=== PATIENT | female | born 2000 | race African-American/Black ===

== ENCOUNTER 2020-06-25 23:50 | Emergency (ER) | payer MEDICAID, OTHER ==
[~2020-06-25] VITALS: Ht 162.6 cm; Wt 77.3 kg
[2020-06-25 23:53] VITALS: BP 114/63
[2020-06-26] MEDS ORDERED: penicillin V potassium 500mg tablet PO ONE (00:55)
[2020-06-26] MEDS ORDERED: PENI500T2 PO (00:56)
== END 2020-06-26 01:30 | disposition home or self-care (01) ==
LOC: ER 23:52
DX: J02.9 Acute pharyngitis, unspecified (principal); Z60.2 Problems related to living alone; Z79.2 Long term (current) use of antibiotics
CPT/HCPCS: 87081; 87880; 99283

== ENCOUNTER 2021-03-21 02:19 | Emergency (ER) | payer MEDICAID ==
[~2021-03-21] VITALS: Ht 162.6 cm; Wt 81.8 kg
[2021-03-21 02:44] LABS: CLARITY,URINE CLOUDY (Clear); COLOR,URINE YELLOW (Yellow); GLUCOSE, URINE NEGATIVE (Neg); KETONES,URINE NEGATIVE (Neg); LEUKOCYTE ESTERASE ,URINE NEGATIVE (Neg); NITRITES, URINE NEGATIVE (Neg); OCCULT BLOOD,URINE TRACE-INTACT (Neg); PROTEIN,URINE NEGATIVE (Neg); URINE HCG POSITIVE (NEG); UROBILINOGEN,URINE 0.2 E.U/dL (0.2-1.0)
[2021-03-21] MEDS ORDERED: MICO45CR11 VG (02:48)
[2021-03-21] MEDS ORDERED: METR-159 PO (02:48)
[2021-03-21 02:49] LABS: UA COLLECTION TYPE CLN CATCH MIDSTREAM
[2021-03-21 02:51] LABS: BACTERIA,URINE 4+ /HPF (Neg); MUCUS STRANDS MANY /LPF (Neg); RBC,URINE 0-2 /HPF (0-2); SQUAMOUS EPITHELIAL CELL,UR MANY /LPF (FEW); WBC,URINE 0-4 /HPF (0-4)
[2021-03-21 03:51] VITALS: BP 105/62
== END 2021-03-21 03:53 | disposition home or self-care (01) ==
LOC: ER 02:20
DX: O46.91 Antepartum hemorrhage, unspecified, first trimester (principal); N76.0 Acute vaginitis; Z3A.01 Less than 8 weeks gestation of pregnancy; Z79.2 Long term (current) use of antibiotics
CPT/HCPCS: 81001; 81025; 82948; 99283

== ENCOUNTER 2024-09-20 15:50 | Emergency (ER) | payer MEDICAID ==
[~2024-09-20] VITALS: Ht 162.6 cm; Wt 105.5 kg
[2024-09-20 16:55] VITALS: BP 137/84; PULSE 94; RESP 16; TEMP 97.4; O2SAT 98
== END 2024-09-20 16:55 | disposition home or self-care (01) ==
LOC: ER 15:51
DX: O26.893 Other specified pregnancy related conditions, third trimester (principal); Z3A.28 28 weeks gestation of pregnancy; R20.0 Anesthesia of skin; M79.89 Other specified soft tissue disorders
CPT/HCPCS: 82948; 99282